=== PATIENT | male | born 1945 | race Caucasian/White ===

== ENCOUNTER → 2016-09-21 | Outpatient (CLI) | payer OTHER ==
[~2016-09-21] MED LIST: AMLH/550 PO; DILT-117 PO; ZOLP10TA PO
--- NOTE | 2016-09-21 16:58 | DIAGNOSTIC IMAGING REPORT ---
LEFT HIP UNILATERAL 2 VIEWS CLINICAL HISTORY: M25.552 Left hip [id number] pain COMPARISON: None. DISCUSSION: Severe degenerative change left hip. [id number] configuration superior acetabular margin. Several degenerative subchondral cysts as well as mild peripheral osteophytic reaction. No evidence for acetabular protrusion. There is no evidence for soft tissue swelling. IMPRESSION: Severe degenerative change left hip. The above report was generated using voice recognition software. It may contain grammatical, syntax or spelling errors. Electronically signed by: Warren Gayle M.D. 09/21/2016 4:57 PM Dictated Date/Time: 09/21/2016 4:56 PM
== END | disposition home or self-care (01) ==
LOC: C.RAD1850 16:47
PROVIDERS: ATTEND Internal Medicine
DX: M25.552 Pain in left hip (principal)

== ENCOUNTER → 2017-05-24 | Outpatient (CLI) | payer OTHER ==
--- NOTE | 2017-05-24 14:54 | DIAGNOSTIC IMAGING REPORT ---
CHEST 2 VIEWS ROUTINE CLINICAL HISTORY: COUGH COMPARISON STUDY: No previous studies for comparison. FINDINGS: The cardiac and mediastinal contours are normal. There is no evidence of focal pulmonary consolidation. There is no evidence of failure. No pleural effusions are visualized.[ An 8 mm rounded density towards the left lung base likely represents a nipple shadow. IMPRESSION: No active disease in the chest. Electronically signed by: Orestes Miramontes M.D. 05/24/2017 2:53 PM Dictated Date/Time: 05/24/2017 2:53 PM
== END | disposition home or self-care (01) ==
LOC: C.RAD1850 14:45
PROVIDERS: ATTEND Physician Assistant Medical
DX: R05 Cough (principal)

== ENCOUNTER → 2017-07-16 | Outpatient (CLI) | payer OTHER ==
[2017-07-16 10:10] LABS: BLOOD UREA NITROGEN 22 mg/dl (7-18); CALCIUM 8.9 mg/dl (8.5-10.1); CARBON DIOXIDE 33 mmol/L (21-32); CREATININE 0.96 mg/dl (0.60-1.40); GLUCOSE 94 mg/dl (70-99); POTASSIUM 3.2 mmol/L (3.5-5.1); SODIUM 138 mmol/L (136-145)
== END | disposition home or self-care (01) ==
LOC: C.LAB1850 07:13
PROVIDERS: ATTEND Internal Medicine
DX: I10 Essential (primary) hypertension (principal)

== ENCOUNTER 2019-10-24 05:19 | Observation (INO) ==
--- NOTE | 2019-09-19 16:27 | PAT Medication Instructions ---
Medication Instructions Date of Service September 19, 2019 Home Medications Medication Instructions Recorded sildenafil 50 mg tablet 50 mg PO DAILY PRN #10 tab 04/08/19 amiloride 5 mg-hydrochlorothiazide See Rx Instructions .ROUTE 05/05/19 50 mg tablet .COMPLEX #90 tablet diltiazem HCl 300 mg See Rx Instructions .ROUTE 05/05/19 capsule,extended release 24 hr .COMPLEX #90 capsule zolpidem 10 mg tablet 10 mg PO DAILY PRN #90 tab 08/07/19 fluocinonide 0.05 % topical cream 1 appln TOP BID PRN metronidazole 0.75 % topical cream 1 appln TOP BID PRN sildenafil 50 mg tablet 50 mg PO DAILY PRN amiloride 5 mg-hydrochlorothiazide 50 mg tablet diltiazem HCl 300 mg capsule,extended release 24 hr zolpidem 10 mg tablet 10 mg PO DAILY PRN STOP taking 24 hours before surgery fluocinonide 0.05 % topical cream 1 appln TOP BID PRN metronidazole 0.75 % topical cream 1 appln TOP BID PRN sildenafil 50 mg tablet 50 mg PO DAILY PRN DO NOT take the morning of surgery amiloride 5 mg-hydrochlorothiazide 50 mg tablet zolpidem 10 mg tablet 10 mg PO DAILY PRN Take morning of surgery With a small sip of water, OTHERWISE NOTHING TO EAT OR DRINK AFTER MIDNIGHT: diltiazem HCl 300 mg capsule,extended release 24 hr Take evening before surgery zolpidem 10 mg tablet 10 mg PO DAILY PRN (if needed) Other Notes If you have any questions please call us at [phone] or [phone] or [phone] or [phone]
--- NOTE | 2019-09-22 14:50 | Anesthesiology Consultation ---
Date of Service September 22, 2019 Assessment & Plan (1) Encounter for pre-operative examination: Chart Review Chart Review: Pending: Refer to Additional Notes / Consult section (pending response from PCP re: low K and preop Covid testing) and Patient seen in Pre Admission Testing Preop labs showed K 3.0- did write note to PCP to optimize- will await response. Per PAT appt 09/22/19, resides in [facility]. Wears mask in public. Educated patient to follow up with surgeon's office regarding Covid testing. Educated on importance of self quarantining, social distancing and wearing mask in public both for the patient and household contacts. Teaching & Discussion Pre-Anesthesia Teaching/Discussion Notes: Instructed NPO after midnight before surgery,except medications with 15 cc of water. Medication instructions provided according to the PAT guidelines. History Surgery Operation Date: 10/24/19 12:30 Proposed Procedures p Left Total Hip Replacement - Rm Wei MD Height/Weight Height: 5 ft 8 in Weight: 69 kg Allergies Allergy/AdvReac Type Severity Reaction Status Date / Time No Known Drug Allergies Allergy Verified 09/19/19 08:33 Medications Home Medications Medication Instructions Recorded Confirmed Last Taken fluocinonide 0.05 % topical cream 1 appln TOP BID PRN 01/07/19 09/19/19 Unknown metronidazole 0.75 % topical cream 1 appln TOP BID PRN 01/07/19 09/19/19 Unknown sildenafil 50 mg tablet 50 mg PO DAILY PRN #10 tab 04/08/19 09/19/19 Unknown amiloride 5 mg-hydrochlorothiazide See Rx Instructions .ROUTE 05/05/19 09/19/19 Unknown 50 mg tablet .COMPLEX #90 tablet diltiazem HCl 300 mg See Rx Instructions .ROUTE 05/05/19 09/19/19 Unknown capsule,extended release 24 hr .COMPLEX #90 capsule zolpidem 10 mg tablet 10 mg PO DAILY PRN #90 tab 08/07/19 09/19/19 Unknown 3-in-1 Commode #1 ea 09/22/19 09/22/19 Unknown Wheeled Walker #1 ea 09/22/19 09/22/19 Unknown Past Medical History Medical History (Updated 09/22/19 @ 15:03 by Deirdre Vega PA-C) Eczema Hearing loss Hx of heartburn No recent issues Hypertension Insomnia Neuropathy BLE Osteoarthritis Rosacea Exercise / Class Metabolic Activity II 4-5 Yardwork/Stairs/Walk up hill (one flight stairs - no chest pain or SOB) Past Family History Family History Other No family history of adverse response to anesthesia No family history of bleeding disorder Past Surgical History Surgical History History of colonoscopy History of esophagogastroduodenoscopy (EGD) History of shoulder surgery LEFT History of tonsillectomy Past Anesthesia History No Hx of Anesthesia Complications and No Family Hx of Anesthesia Complications History of PONV No Hx of PONV and No Hx of Motion Sickness Social History Smoking Status: Former smoker Do You Dip or Chew Tobacco: No Smoking End Date: IN COLLEGE YEARS Hx Alcohol Use: Yes Alcohol type: beer and wine alcohol intake frequency: a few times a week Hx Substance Use: No substance use type: does not use Review of Systems Patient denies chest pain, shortness of breath, dyspnea on exertion, cough, wheezing, palpitations. No hx of seizures, stroke, MO, apnea/snoring. No hx of blood clots or blood transfusions Physical Exam Vital Signs VITALS BP 136/76 P 67 TEMP 98.4 SP02 95% RESP 16 Constitutional no acute distress ENMT Mouth: no TMJ clicking Thyromental Distance: > or= 3.5 Finger Breadths (4.0) Mallampati Class: II Denies any loose or missing teeth Neck + limited neck extension (moderate ) Respiratory normal respiratory effort; no respiratory distress Auscultation: lungs clear to auscultation bilaterally; no wheezes Cardiovascular Rate/Rhythm: regular rate and regular rhythm Heart Sounds: no murmur Vessels: no carotid bruit Musculoskeletal Spine: no pain with cervical ROM Neurologic moves all extremities Psychiatric Orientation: alert Testing Laboratory Results 09/22/19 15:02 09/22/19 15: PT 10.4 Seconds (9.0-12.0) 09/22/19 15: INR 1.0 (0.9-1.1) 09/22/19 15: APTT 31.0 Seconds (21.0-31.0) 09/22/19 15:02 Blood Type O Positive 09/22/19 15:02 Antibody Screen NEGATIVE 09/22/19 15:02 Electrocardiogram Date: 09/22/19 Findings: + SB @ (59) Minimal voltage criteria for LVH, may be normal variant. Chest X-Ray Date: 09/22/19 Findings: + NAD The cardiomediastinal silhouette is unremarkable noting atherosclerotic calcification of the thoracic aorta. There is mild bibasilar scarring/atele ctasis. The lungs and pleural spaces are otherwise clear. There is no pneumothorax.
--- NOTE | 2019-09-22 15:38 | Electrocardiogram Report ---
Test Reason : Blood Pressure : / mmHG Vent. Rate : 059 BPM Atrial Rate : 059 BPM P-R Int : 172 ms QRS Dur : 102 ms QT Int : 414 ms P-R-T Axes : 036 -13 007 degrees QTc Int : 409 ms Sinus bradycardia Minimal voltage criteria for LVH, may be normal variant Borderline ECG When compared with ECG of 03-DEC-2014 20:51, QRS duration has increased Confirmed by Nathanael Denton ([id number]) on 09/22/2019 3:38:21 PM Referred By: Rm Wei Confirmed By:Nathanael Denton
[2019-09-22 16:00] LABS: Basophils # (auto) 0.05 K/uL (0-0.2); Basophils % (auto) 0.8 %; Eosinophils # (auto) 0.12 K/uL (0-0.5); Eosinophils % (auto) 1.8 %; Hematocrit (blood only) 44.8 % (42-52); Hemoglobin 15.5 g/dL (14.0-18.0); Immature Granulocytes # (auto) 0.03 K/uL (0.00-0.02); Immature Granulocytes % (auto) 0.5 %; Lymphocytes # (auto) 1.92 K/uL (1.2-3.4); Lymphocytes % (auto) 29.4 %; Mean Corpuscular Hemoglobin 32.6 pg (25-34); Mean Corpuscular Hgb Conc 34.6 g/dL (32-36); Mean Corpuscular Volume 94.1 fL (80-100); Mean Platelet Volume 11.9 fL (7.4-10.4); Monocytes # (auto) 0.55 K/uL (0.11-0.59); Monocytes % (auto) 8.4 %; Neutrophils # (auto) 3.85 K/uL (1.4-6.5); Neutrophils % (auto) 59.1 %; Platelet Count 232 K/uL (130-400); RDW Coefficient of Variation 13.2 % (11.5-14.5); RDW Standard Deviation 45.3 fL (36.4-46.3); Red Blood Count 4.76 M/uL (4.7-6.1); White Blood Count 6.52 K/uL (4.8-10.8)
--- NOTE | 2019-09-22 16:00 | XRay Report ---
TWO VIEW CHEST CLINICAL HISTORY: Preoperative examination. FINDINGS: PA and lateral chest radiographs are compared to study dated 05/24/2017. The cardiomediastin al silhouette is unremarkable noting atherosclerotic calcification of the thoracic aorta. There is mi ld bibasilar scarring/atelectasis. The lungs and pleural spaces are otherwise clear. There is no pneu mothorax. The skeletal structures are osteopenic. The skeletal structures are osteopenic. There is a healed right posterior rib fracture. IMPRESSION: No active disease in the chest. ACT 112: Negative or not required by law. Electronically signed by: Emile Palomino M.D. 09/22/2019 3:58 PM
[2019-09-22 16:05] LABS: BUN Creatinine Ratio 15.4 (10-20); Calcium 8.8 mg/dl (8.5-10.1); Est GFR (African American) 80.3; Est GFR (Non-African American) 69.3
[2019-09-22 16:10] LABS: Partial Thromboplastin Ratio 1.1; Prothrombin Time 10.4 Seconds (9.0-12.0)
--- NOTE | 2019-10-18 10:02 | History and Physical Report ---
DATE OF ADMISSION: 10/24/2019 CHIEF COMPLAINT: Left hip and leg pain. HISTORY OF PRESENT ILLNESS: The patient is a 74-year-old gentleman who presents for surgical treatment of his left hip. He has got a long history of left hip pain and discomfort that has gradually gotten worse over time. He has continued to try and stay active, but having more and more difficulty doing this due to his pain. He cannot exercise or walk any long distance due to the groin and thigh pain. He has got a lot of knee pain as well. He had an extensive workup which showed a fairly normal looking knee, but a severely arthritic hip. He would like to have this pain better. He has difficulty putting his shoes and socks on. Pain medicine does not really help. PAST MEDICAL HISTORY: Past medical history is significant for hypertension. PAST SURGICAL HISTORY: Previous surgeries include left AC joint separation. ALLERGIES: None. CURRENT MEDICINES: Include: 1. Amiloride/hydrochlorothiazide once a day. 2. Diltiazem. 3. Unspecified topical ointment. 4. Metronidazole topical ointment. 5. Sildenafil. 6. Zolpidem. SOCIAL HISTORY: A 74-year-old male. He lives in [place]. He does live by himself. No significant smoking history. Seven to ten drinks per week. FAMILY HISTORY: Noncontributory. REVIEW OF SYSTEMS: Negative for diabetes, neurologic problem, vascular problems or bleeding disorders. No chest pain or shortness of breath. No history of DVT or PE. No known bleeding problems. PHYSICAL EXAMINATION: GENERAL: Physical examination shows a pleasant, healthy appearing elderly male. Looks to be in excellent health. HEENT: Benign. NECK: Supple. No lymphadenopathy. LUNGS: Clear to auscultation. HEART: Has a regular rate and rhythm. ABDOMEN: Soft, nontender, nondistended. EXTREMITIES: Grossly neurovascularly intact except as follows. Examination of the left hip and leg reveals the patient walks with a slight bit of limp. He is about 0.25 cm short on the left compared to the right. He has got very stiff hip which recreates his pain. Negative straight leg raise. He cannot quite internally rotate his hip to neutral. No knee effusion. No instability in his knee. Normal knee motion. X-RAYS: X-rays of the left hip reveal advanced hip DJD. He has got complete loss of his joint space with cystic changes of the femoral head and acetabulum. He has got fairly similar, but less severe disease in his right hip. X-rays of the left knee are fairly normal. Joint space is well maintained. Minimal arthritic change. ASSESSMENT: A 74-year-old male with advanced bilateral hip pain and degenerative joint disease, left side more symptomatic than the right. Interestingly, he is having mostly knee and thigh pain and his knee exam and x-rays are normal. I am almost certain that most of this pain is coming from his hip. It is disabling. He would like to have his hip fixed. PLAN: We are going to take him to the Operating Room and do a left total hip replacement. The risks and benefits of this procedure were explained to the patient and include but not limited to DVT, PE, , infection, neurological injury, vascular injury, bleeding problem, pain, limited range of motion, stiffness, failure to relieve his symptoms, dislocation, need for blood transfusion, fracture, etc. The patient understands and desires to proceed. As far as discharge plans, he is hoping to be discharged to home. His sister is going to come and stay with him for a week. We will do the best we can to get his leg lengths reasonably equal, but he is going to probably need his right hip done in the future, so we will lengthen his leg slightly. The patient understands and will proceed as above. ALPHONSO
[2019-10-24] MEDS ORDERED: BUPIVACAINE 0.5 % 5 MG/1 ML PF 10ML VIAL ONE (05:41)
[2019-10-24] MEDS ORDERED: TRANEXAMIC ACID 1,000 MG **IV Pre-op IV SCH (06:00)
[2019-10-24] MEDS ORDERED: LR 500ML BOLUS, THEN 15ML/HR IV SCH (06:00)
[2019-10-24] MEDS ORDERED: ACETAMINOPHEN 500 MG TAB PO SCH (06:00)
[2019-10-24] MEDS ORDERED: CEFAZOLIN 2000MG 2,000 MG/15 ML SYR IV SCH (06:00)
[2019-10-24] MEDS ORDERED: FAMOTIDINE 20 MG TAB PO SCH (06:00)
[2019-10-24] MEDS ORDERED: METOCLOPRAMIDE HCL 10 MG TABLET PO SCH (06:00)
[2019-10-24] MEDS ORDERED: GABAPENTIN 300 MG CAP PO SCH (06:00)
[2019-10-24] MEDS ORDERED: LR 60ML/HR IV SCH (06:00)
[2019-10-24 06:20] LABS: BUN Creatinine Ratio 21.4 (10-20); Calcium 9.2 mg/dl (8.5-10.1); Creatinine Clr Calc Pharmacy 72.2 ml/min; Est GFR (African American) 98.8; Est GFR (Non-African American) 85.2; Potassium 3.1 mmol/L (3.5-5.1)
[2019-10-24] MEDS ORDERED: fentaNYL citrate 100 MCG/2 ML VIAL ONE (06:23)
[2019-10-24] MEDS ORDERED: MIDAZOLAM HCL 1 MG/ML 2ML VIAL ONE (06:23)
[2019-10-24] MEDS ORDERED: MoRPHine SULFATE PF 1 MG/ML 10 ML AMP/VIAL ONE (06:23)
[2019-10-24] MEDS ORDERED: EPINEPHrine INJ 1 MG/ML AMP ONE (06:30)
[2019-10-24] MEDS ORDERED: BUPIVACAINE 0.5 % 5 MG/1 ML MPF 30ML VIAL ONE (06:30)
[2019-10-24] MEDS ORDERED: BACITRACIN INJ 50,000 UNIT VIAL ONE (06:30)
--- NOTE | 2019-10-24 06:45 | History & Physical Bridge Note ---
Date of Service October 24, 2019 History & Physical Bridge Note I have examined the patient, reviewed the History & Physical and in the interval since the performance of the History & Physical I have noted the following changes of clinical significance: no changes noted
[2019-10-24] MEDS ORDERED: DiphenhydrAMINE HCL 50 MG/ML VIAL IV PRN (06:54)
[2019-10-24] MEDS ORDERED: NALOXONE HCL 0.4 MG/1 ML VIAL/CARP IV PRN ×2 (06:54→11:09)
[2019-10-24] MEDS ORDERED: ePHEDrine sulfate 50 MG/ML AMP IV PRN (06:54)
[2019-10-24] MEDS ORDERED: ONDANSETRON INJ 2 MG/ML 2 ML VIAL IV PRN ×2 (06:54→11:09)
[2019-10-24] MEDS ORDERED: LACTATED RINGER'S 500 ML IV PRN (06:54)
[2019-10-24] MEDS ORDERED: MoRPHine SULFATE PF 1 MG/ML 10 ML AMP/VIAL INT SPINAL ONE (06:54)
[2019-10-24] MEDS ORDERED: NALOXONE HCL 1 MG in SODIUM CHLORIDE 0.9% 1000ML 1,000 ML IV PRN (06:54)
[2019-10-24] MEDS ORDERED: NALOXONE HCL 0.08 MG in SYRINGE 1.8 ML IV PRN (06:54)
[2019-10-24] MEDS ORDERED: MEPERIDINE HCL 25 MG/ML CARP/VIAL IV PRN (06:54)
[2019-10-24] MEDS ORDERED: NO NARCOTICS OR SEDATIVES SCH (07:00)
[2019-10-24] MEDS ORDERED: SODIUM CHLORIDE 0.9% 1000ML 1,000 ML IV SCH (07:00)
[2019-10-24] MEDS ORDERED: DC INTRASPINAL MORPHINE SCH (07:00)
--- NOTE | 2019-10-24 08:11 | Post Operative Brief Note ---
PG Immediate Post Op with CF Date of Surgery October 24, 2019 Pre & Post Diagnosis Operation Date: 10/24/19 07:00 Pre-Op Diagnosis: Left Hip Advanced Degenerative Joint Disease Post-Op Diagnosis: Left Hip Advanced Degenerative Joint Disease I identified the patient and participated in the time-out.: Yes Procedure Operation Date: 10/24/19 07:00 Actual Procedures p Left Total Hip Arthroplasty--Uncemented(Left) - Rm Wei MD Surgeon Rm Wei MD Broke Beater Gege, PAC Estimated Blood Loss 200 Findings Consistent with Post-Op Diagnosis Fluids 1000 cc Specimens Specimen Description: A. Left Femoral Head Drains Cristobal Catheter Anesthesia Type Spinal MAC Complications none Disposition Accompanied Patient To Recovery: Yes Disposition: Recovery Room
--- NOTE | 2019-10-24 08:25 | Operative Report ---
Post Operative Report Pre & Post Diagnosis Operation Date: 10/24/19 07:00 Pre-Op Diagnosis: Left Hip Advanced Degenerative Joint Disease Post-Op Diagnosis: Left Hip Advanced Degenerative Joint Disease I identified the patient and participated in the time-out.: Yes Procedure Operation Date: 10/24/19 07:00 Actual Procedures p Left Total Hip Arthroplasty--Uncemented(Left) - Rm Wei MD Surgeon Rm eWi MD Pipe Insulator Gege, PAC Estimated Blood Loss 200 Findings Consistent with Post-Op Diagnosis Operative findings revealed advanced left hip DJD. He had grade 4 [id number] disease of the femoral head and acetabulum. He had a large medial acetabular osteophyte and a significant anterior acetabular osteophyte. Fluids 1000 cc. Specimens Left femoral head sent for pathology. Drains None. Complications none Disposition Accompanied Patient To Recovery: Yes Disposition: Recovery Room Indications Patient is 74-year-old gentleman is fairly active and independent who has a several year history of increasing and progressive leg pain and discomfort left side greater than right. He has been asked to insensate conservative treatment with extensive work-up and treated conservative without adequate relief. X-rays revealed minimal arthritic changes knee. He had advanced left hip DJD. He elected proceed with surgical treatment of his hip. Description of Procedure Operative implants consist of: 1. Biomet G7 size 54 mm acetabular shell. 2. 6.5 cancellus acetabular screws 1 of 35 mm length and 1 of 20 mm in length. 3. [place] hole eliminator. 4. Highly cross-linked polyethylene liner with a 54 mm outer diameter and 36 mm inner diameter. 5. Yefri Corail I size 11 KLA femoral stem. 6. +8.5/36 mm ceramic articular ball. The patient was taken to the operating identified placed on the operating table supine position protectors were properly padded. IV antibiotics arrived by anesthesia team. A spinal anesthetic had been implemented holding area. Cristobal catheter was placed in sterile fashion. The patient was then placed in the right lateral decubitus position. An axillary roll was placed. A Stulberg hip positioner was used for positioning. Left hip and leg were then prepped and draped in usual sterile fashion. A posterior lateral approach to the left hip was then performed through a curvilinear incision centered over the greater trochanter. Sharp dissection got through subcutaneous tissue down to level the IT band gluteal fascia the IT band gluteal fascia incised longitudinally in line with skin incision. The underlying greater truck bursa was excised. The piriformis and external rotators and posterior capsule were then released from the posterior aspect hip joint as a single layer. The hip was internally rotated and dislocated. A great care was taken throughout the procedure protect the sciatic nerve at all times. A femoral neck osteotomy cut was made with Final Cut about 6 mm above the lesser trochanter. Femoral head was removed and sent for pathology. The femur was retracted anteriorly. Attention drawn the acetabulum. The acetabular labrum was excised per the pulmonary fat was excised. I then remove some of the medial osteophyte in order to see the medial wall the acetabulum. I then reamed the acetabulum begin with a size 45 and progressing up to 53. I did enter the stem with a 54 reamer. A 54 mm Biomet G7 acetabular shell was then placed in about 20 degrees of anteversion and 40 degrees lateral opening. It was fixed with two 6.5 cancellus acetabular screws. An anterior osteophyte was removed. A trial liner was placed. Attention drawn the femur. The proximal femur was entered with a cookie-cutter followed by canal finder. I broached begin the size 8 and progressed up to 11. Got good fit at 11. It did not feel like I could predictably fit the 12 down. We had excellent stability. Calcar reamer was used smooth and off the calcar. I then trialed the hip. The +5 articular ball was stable but the soft tissue tension was fairly lax. With a +8.5 head soft tissue tension was more appropriate. Leg lengths seem pretty equal. I was fully aware that he is got advanced hip arthritis on his other side and likely need that replaced as well. Having said this we knew that we might lengthen him slightly as a result. The +8.5 neck lengths seem to re- create soft tissue better. We elect to place these implants. All trial implants were removed. An apex eliminator was placed but highly cross-linked polyethylene liner was placed. A a size 11 KLA femoral stem was impacted in position. +8.5/36 mm ceramic articular ball was placed. Hip was located once again found to be stable. Attention drawn toward closing. The wounds irrigated copious pulsatile lavage solution. I did inject locally with 60 cc of half percent Marcaine with epinephrine. The posterior capsule and external rotators were then repaired through drill holes in the posterior trochanter as a single layer with #2 Tycron suture. The IT band gluteal fascia then closed in 1 PDS suture running fashion. Subcutaneous tissue was then closed 2 layers the deep layer #1 Vicryl suture and subcutaneous tissues with 2- 0 Dexon suture in a buried interrupted fashion. Skin was then closed with skin greta. The leg was then cleaned and dried a sterile dressing composed Xeroform, 4 x 4's, ABD pad and foam tape was applied. The patient then transferred to the recovery room in stable condition. Patient tolerated the procedure well there are no complications. Dimas De Guzman, my physician account management assistant, was present for the entire procedure. His assistance was required for appropriate positioning, prepping and draping, surgical exposure, performing the technical details of the operation, placing the implants, closure of the wound, and placement of the sterile bandage. I attest to the content of the Intraoperative Record and any orders documented therein. Any exceptions are noted below.
--- NOTE | 2019-10-24 08:35 | XRay Report ---
XR hip 1V LT w pelvis HISTORY: 74 years-old Male IN PACU - A/P PELVIS and LATERAL HIP left hip total joint arthroplasty COMPARISON: Left hip radiographs 09/21/2016 TECHNIQUE: AP view of the pelvis with crosstable lateral view of the left hip FINDINGS: Left hip total joint arthroplasty. There is satisfactory alignment without acute fracture or retained foreign body. Lateral skin greta are noted along with expected postsurgical soft tissue swelling a nd deep tissue air. Moderate to severe right hip osteoarthritis. IMPRESSION: Left hip total joint arthroplasty with expected postoperative findings. ACT 112: Negative or not required by law. The above report was generated using voice recognition software. It may contain grammatical, syntax o r spelling errors. Electronically signed by: Arjun Wells M.D. 10/24/2019 8:34 AM
--- NOTE | 2019-10-24 09:16 | Anesthesiology Progress Note ---
Date of Service October 24, 2019 Anesthesia Post Procedure Vital Signs Vital Signs: Temp Pulse Pulse Resp BP Pulse Ox 10/24/19 09:00 54 L 14 98/58 L 96 10/24/19 08:50 60 14 95/56 L 99 10/24/19 08:40 60 9 L 113/62 100 10/24/19 08:30 54 L 10 L 115/62 100 10/24/19 08:20 65 14 113/60 98 10/24/19 08:11 97.9 F 59 L 14 108/61 98 10/24/19 05:38 97.7 F 58 L 16 163/94 H 95 Transfer of Care Handoff Completed per policy Notes Mental Status: alert / awake / arousable and participated in evaluation Patient Amnestic to Procedure: Yes Nausea / Vomiting: adequately controlled Pain: adequately controlled Airway Patency, RR, SpO2: stable & adequate BP & HR: stable & adequate Hydration State: stable & adequate Neuraxial Anesthesia: was administered and sensory block is resolving Anesthetic Complications: no major complications apparent and Pt Satisfied with anesthetic care
[2019-10-24] MEDS ORDERED: TAMSULOSIN HCL 0.4 MG CAP PO PRN (11:09)
[2019-10-24] MEDS ORDERED: TRAMADOL HCL 50 MG TABLET PO PRN (11:09)
[2019-10-24] MEDS ORDERED: HYDROmorphone INJ 0.5 MG/0.5 ML SYR IV PRN (11:09)
[2019-10-24] MEDS ORDERED: NON-FORMULARY MEDICATION (Sildenafil 50 MG) PO PRN (11:09)
[2019-10-24] MEDS ORDERED: FLUOCINONIDE 0.05% CR 15 GM TUBE EXT PRN (11:09)
[2019-10-24] MEDS ORDERED: ZOLPIDEM TARTRATE 10 MG TAB PO PRN (11:09)
[2019-10-24] MEDS ORDERED: bisacodyL 10 MG SUPP PR PRN (11:09)
[2019-10-24] MEDS ORDERED: AMILORIDE/HCTZ 5/50MG TAB PO SCH (11:09)
[2019-10-24] MEDS ORDERED: MAGNESIUM HYDROXIDE SUSP 30 ML UDC PO PRN (11:09)
[2019-10-24] MEDS ORDERED: metroNIDAZOLE 0.75% TOPICAL GEL 45 GM TUBE TOP PRN (11:09)
[2019-10-24] MEDS ORDERED: METOCLOPRAMIDE HCL INJ 5 MG/ML 2 ML VIAL IV PRN (11:09)
[2019-10-24] MEDS ORDERED: ALUMINUM/MAGNESIUM SUSP 30 ML UDC PO PRN (11:09)
[2019-10-24] MEDS: KETOROLAC TROMETHAMINE 15 MG/ML VIAL IV SCH ×2 (13:09→18:04)
[2019-10-24] MEDS: DOCUSATE SODIUM 100 MG CAP PO SCH ×2 (13:09→21:44)
[2019-10-24] MEDS: ASPIRIN 81 MG ECTAB PO SCH ×2 (13:09→21:42)
[2019-10-24] MEDS: MULTIVITAMIN TAB PO SCH (13:10)
[2019-10-24] MEDS: dilTIAZem HCL 300 MG CAPCR PO SCH (13:12)
[2019-10-24] MEDS: CEFAZOLIN 1000MG 1,000 MG/7.5 ML SYR IV SCH ×2 (13:52→21:42)
[2019-10-24] MEDS: ACETAMINOPHEN 500 MG TAB PO SCH ×2 (13:53→21:45)
[2019-10-24] MEDS ORDERED: TRANEXAMIC ACID / 0.7% NACL 1,000 MG/100 ML BAG IV SCH (14:00)
[2019-10-24] MEDS: AMILORIDE HCL 5 MG TAB PO SCH (14:33)
[2019-10-24] MEDS: hydroCHLOROthiazide 25 MG TAB PO SCH (14:33)
[2019-10-24] MEDS: SODIUM CHLORIDE 0.9% 1000ML 1,000 ML IV SCH ×2 (17:37→21:46)
[2019-10-24] MEDS: ASCORBIC ACID 500 MG TAB PO SCH (18:03)
[2019-10-24] MEDS: FERROUS GLUCONATE 324 MG TAB PO SCH (18:04)
[2019-10-24] MEDS: SENNA 8.6 MG TAB PO SCH (21:44)
[2019-10-25] MEDS: KETOROLAC TROMETHAMINE 15 MG/ML VIAL IV SCH ×5 (00:20→23:37)
[2019-10-25] MEDS ORDERED: ONDANSETRON INJ 2 MG/ML 2 ML VIAL IV PRN (00:54)
[2019-10-25] MEDS ORDERED: ZOLPIDEM TARTRATE 10 MG TAB PO PRN (00:54)
[2019-10-25] MEDS ORDERED: TRAMADOL HCL 50 MG TABLET PO PRN (00:54)
[2019-10-25] MEDS ORDERED: HYDROmorphone INJ 0.5 MG/0.5 ML SYR IV PRN (00:54)
[2019-10-25] MEDS: ACETAMINOPHEN 500 MG TAB PO SCH ×3 (06:10→21:27)
[2019-10-25] MEDS: ASCORBIC ACID 500 MG TAB PO SCH ×2 (08:06→18:20)
[2019-10-25] MEDS: hydroCHLOROthiazide 25 MG TAB PO SCH (08:06)
[2019-10-25] MEDS: AMILORIDE HCL 5 MG TAB PO SCH (08:07)
[2019-10-25] MEDS: dilTIAZem HCL 300 MG CAPCR PO SCH (08:07)
[2019-10-25] MEDS: ASPIRIN 81 MG ECTAB PO SCH ×2 (08:11→20:46)
[2019-10-25] MEDS: MULTIVITAMIN TAB PO SCH (08:11)
[2019-10-25] MEDS: FERROUS GLUCONATE 324 MG TAB PO SCH ×2 (08:11→18:20)
[2019-10-25] MEDS: DOCUSATE SODIUM 100 MG CAP PO SCH ×2 (08:11→20:46)
--- NOTE | 2019-10-25 09:24 | Progress Notes ---
DATE: 10/25/2019 SUBJECTIVE: A 74-year-old gentleman postop day 1 from a left hip replacement. He is doing well. Not having any pain at all while lying in bed. No chest pain or shortness of breath. Not feeling dizzy or lightheaded. OBJECTIVE: VITAL SIGNS: Temperature 36.6. Vital signs stable. GENERAL: Physical examination shows a pleasant elderly male. He is lying in bed, looks completely comfortable. He is awake, alert and oriented. EXTREMITIES: Examination of left hip and leg reveals leg lengths to be equal. Dressing is clean, dry and intact. Thigh is soft and supple. He is neurologically intact. LABORATORY DATA: Pending. ASSESSMENT: A 74-year-old gentleman postop day 1 from a left hip replacement, doing well. Pain is controlled. Hip is located. He is neurologically intact. PLAN: 1. DVT prophylaxis include thigh-high TEDs, SCDs and aspirin twice a day for the next 6 weeks. 2. PT/OT. Weightbear as tolerated. Left total hip protocol. 3. Pain control. Doing well with current pain regimen. 4. Disposition: He is planning to be discharged to home with some home health and his sister is going to assist in his care. Likely discharge tomorrow if medically stable and pain controlled.
[2019-10-25 09:59] LABS: Basophils # (auto) 0.02 K/uL (0-0.2); Basophils % (auto) 0.2 %; Eosinophils # (auto) 0.18 K/uL (0-0.5); Hematocrit (blood only) 40.4 % (42-52); Immature Granulocytes # (auto) 0.02 K/uL (0.00-0.02); Immature Granulocytes % (auto) 0.2 %; Lymphocytes # (auto) 1.39 K/uL (1.2-3.4); Lymphocytes % (auto) 15.4 %; Mean Corpuscular Hemoglobin 34.1 pg (25-34); Mean Corpuscular Hgb Conc 34.7 g/dL (32-36); Mean Corpuscular Volume 98.3 fL (80-100); Mean Platelet Volume 11.6 fL (7.4-10.4); Monocytes # (auto) 0.61 K/uL (0.11-0.59); Monocytes % (auto) 6.8 %; Neutrophils # (auto) 6.79 K/uL (1.4-6.5); Neutrophils % (auto) 75.4 %; Platelet Count 189 K/uL (130-400); RDW Coefficient of Variation 12.9 % (11.5-14.5); RDW Standard Deviation 46.5 fL (36.4-46.3); Red Blood Count 4.11 M/uL (4.7-6.1); White Blood Count 9.01 K/uL (4.8-10.8)
[2019-10-25 10:32] LABS: BUN Creatinine Ratio 14.6 (10-20); Calcium 8.7 mg/dl (8.5-10.1); Creatinine Clr Calc Pharmacy 70.6 ml/min; Est GFR (African American) 97.9; Est GFR (Non-African American) 84.4; Potassium 2.6 mmol/L (3.5-5.1)
[2019-10-25] MEDS ORDERED: POTASSIUM CHLORIDE 20 MEQ TABCR PO ONE ×3 (11:00→20:00)
[2019-10-25] MEDS: SENNA 8.6 MG TAB PO SCH (20:46)
[2019-10-26] MEDS: KETOROLAC TROMETHAMINE 15 MG/ML VIAL IV SCH (06:25)
[2019-10-26] MEDS: ACETAMINOPHEN 500 MG TAB PO SCH (06:25)
[2019-10-26] MEDS: DOCUSATE SODIUM 100 MG CAP PO SCH (07:52)
[2019-10-26] MEDS: ASPIRIN 81 MG ECTAB PO SCH (07:52)
[2019-10-26] MEDS: MULTIVITAMIN TAB PO SCH (07:53)
[2019-10-26] MEDS: FERROUS GLUCONATE 324 MG TAB PO SCH (07:53)
[2019-10-26] MEDS: ASCORBIC ACID 500 MG TAB PO SCH (07:54)
[2019-10-26] MEDS: dilTIAZem HCL 300 MG CAPCR PO SCH (07:56)
[2019-10-26] MEDS: AMILORIDE HCL 5 MG TAB PO SCH (07:56)
--- NOTE | 2019-10-26 08:46 | Progress Notes ---
DATE: 10/26/2019 SUBJECTIVE: A 74-year-old gentleman postop day 2 from left hip replacement. Hip is doing well. He has had some calf discomfort in both legs overnight, which is not unusual for him. His hip pain has been very manageable. No chest pain or shortness of breath. Had some orthostasis yesterday but better than last evening. OBJECTIVE: VITAL SIGNS: Temperature 36.5. Vital signs stable. GENERAL: Shows a pleasant elderly male. He is lying in bed, looks pretty comfortable. EXTREMITIES: Examination of left hip and leg reveals leg lengths to be equal. Dressing is clean, dry and intact. Thigh is soft and supple. His calves are both supple as well. There is no significant swelling. No palpable masses or cords. ASSESSMENT: A 74-year-old gentleman postop day 2 from a left hip replacement, doing pretty well. Pain is controlled. He is having some calf pain similar to what he normally has preoperatively. There are no signs of thrombosis. PLAN: 1. DVT prophylaxis including thigh-high TEDs, SCDs, and aspirin twice a day. 2. PT/OT. Weight bear as tolerated. Left total hip protocol. 3. Pain control, doing okay with current pain regimen. 4. Disposition: Plan to discharge to home with some home health and his sister's assistance later today if he is doing okay.
[2019-10-26 08:51] LABS: BUN Creatinine Ratio 21.8 (10-20); Calcium 8.6 mg/dl (8.5-10.1); Creatinine Clr Calc Pharmacy 93.5 ml/min; Est GFR (African American) 109.8; Est GFR (Non-African American) 94.7; Potassium 3.6 mmol/L (3.5-5.1)
== END 2019-10-26 13:35 | disposition home health service (06) ==
LOC: ASU 05:19 → 3E 05:19

== ENCOUNTER 2021-09-29 06:48 | Observation (INO) ==
--- NOTE | 2021-09-07 15:53 | PAT Medication Instructions ---
Medication Instructions Date of Service September 07, 2021 Home Medications diltiazem HCl 300 mg capsule,24 hr,extended release 300 mg PO QAM triamterene 37.5 mg-hydrochlorothiazide 25 mg tablet 1 tab PO QAM DO NOT take the morning of surgery triamterene 37.5 mg-hydrochlorothiazide 25 mg tablet 1 tab PO QAM Take morning of surgery With a small sip of water, OTHERWISE NOTHING TO EAT OR DRINK AFTER MIDNIGHT: diltiazem HCl 300 mg capsule,24 hr,extended release 300 mg PO QAM Other Notes If you have any questions please call us at [phone] or [phone] or [phone] or [phone]
--- NOTE | 2021-09-12 10:37 | Anesthesiology Consultation ---
Date of Service September 12, 2021 Assessment & Plan (1) Encounter for pre-operative examination: - hx post-op orthostasis with 10/24/19 L SILVIANO requiring additional overnight stay per pt and Dr. Wei's progress note. SAB L3-L4 1 attempt. - COVID screening: Per assessment on 09/12/2021: Travel screen returned from [facility] 09/02, no known COVID-19 positive contacts or current COVID-19 related symptoms in past 2 weeks. Pt vaccinated. Surgeon arranging preop COVID testing, scheduled 09/27/2021. Awaiting results. Chart Review Chart Review: Acceptable Risk for Surgery and Patient seen in Pre Admission Testing Teaching & Discussion Pre-Anesthesia Teaching/Discussion Notes: Instructed NPO after midnight before surgery, except medications with 15 cc of water. Medication instructions provided according to the PAT guidelines. History Surgery Operation Date: 09/29/21 07:00 Proposed Procedures p Right Total Hip Replacement - Rm Wei MD Height/Weight Height: 5 ft 8 in Weight: 67 kg Allergies Allergy/AdvReac Type Severity Reaction Status Date / Time No Known Drug Allergies Allergy Verified 09/06/21 07:37 Medications Home Medications Medication Instructions Recorded Confirmed Last Taken diltiazem HCl 300 mg capsule,24 300 mg PO QAM 09/06/21 09/06/21 Unknown hr,extended release triamterene 37.5 1 tab PO QAM 09/06/21 09/06/21 Unknown mg-hydrochlorothiazide 25 mg tablet Wheeled Walker #1 ea 09/12/21 09/12/21 Unknown Past Medical History Medical History Eczema Hearing loss Hypertension Neuropathy Rosacea Vertigo Patient denies h/o stroke, seizures, heart attack, heart failure, DM, blood clots or blood transfusions. Exercise / Class Metabolic Activity II 4-5 Yardwork/Stairs/Walk up hill (denies CP or SOB with 1 FOS) Past Family History Family History Sister Breast cancer Family/Other Breast cancer Prostate cancer Grandfather (Paternal) Stroke Other No family history of adverse response to anesthesia No family history of bleeding disorder Denies family history of Ovarian cancer Myocardial infarction Colorectal cancer Past Surgical History Surgical History History of colonoscopy History of esophagogastroduodenoscopy (EGD) History of left hip replacement (~10/2019) History of shoulder surgery History of tonsillectomy Past Anesthesia History No Family Hx of Anesthesia Complications and Other (hypotension post-op SILVIANO) History of PONV No Hx of PONV and No Hx of Motion Sickness Social History Smoking Status: Never smoker Do You Dip or Chew Tobacco: No Hx Alcohol Use: Yes Alcohol type: beer and wine alcohol intake frequency: 0-2 drinks per day Hx Substance Use: No substance use type: does not use Review of Systems Patient denies chest pain, shortness of breath, dyspnea on exertion, snoring, witnessed apneas, reflux, fever, chills, cough, wheezing, or palpitations. Physical Exam Vital Signs Vitals BP 148/80 P 64 TEMP 98 SP02 99% on RA RESP 17 Physical Full cervical extension range of motion without pain TMD 3.5 finger breaths Mallampati Score 3 Dentition: intact, denies chipped or loose teeth, caps/crowns, implants or bridges Lungs: normal respiratory effort. Clear throughout to auscultation, no adventitious breath sounds Cardiac: regular rate and rhythm, no murmurs noted Carotid arteries: negative bruit bilat Lab Results Anesthesia Preop Results Results Anesthesia Widget: WBC 7.45 K/ul (4.8-10.8) 09/12/21 Hgb 15.0 g/dl (14.0-18.0) 09/12/21 Hct 43.7 % (40.1-51.0) 09/12/21 Plt 205 K/uL (130-400) 09/12/21 Na 138 mmol/L (136-145) 09/12/21 K 3.8 mmol/L (3.5-5.1) 09/12/21 Cl 101 mmol/L (98-107) 09/12/21 CO2 30 mmol/L (21-32) 09/12/21 BUN 19 mg/dl (6-23) 09/12/21 Creat 0.83 mg/dl (0.6-1.4) 09/12/21 Glucose Level 70 mg/dl (70-99(Fasting)) 09/12/21 PT 10.3 Seconds (9.0-12.0) 09/12/21 PTT 29.6 Seconds (21.0-31.0) 09/12/21 INR 1.0 (0.9-1.1) 09/12/21 TSH 1.248 uIu/ml (0.300-4.500) 07/20/21 Free T4 0.75 ng/dl (0.61-1.60) 07/20/21 Blood Type O Positive 09/12/21 Antibody Screen NEGATIVE 09/12/21 Testing Electrocardiogram Date: 09/12/21 Sinus bradycardia, rate 59 bpm Chest X-Ray Date: 09/12/21 There is a mildly tortuous thoracic aorta, unchanged. The heart is normal in size. No pleural effusions. No pneumothorax. The lungs are clear. Old postoperative/posttraumatic changes noted at the left acromioclavicular joint and distal left clavicle. Old, healed right-sided rib fractures. IMPRESSION: No significant change compared to the prior study. No acute process.
[~2021-09-29 06:48] MED LIST changes: +ACETAMINOPHEN 500 MG TAB PO SCH; -AMLH/550 PO; +BUPIVACAINE 0.5 % 5 MG/1 ML PF 10ML VIAL ONE; +CeleBREX 200 MG CAP PO SCH; -DILT-117 PO; +FAMOTIDINE 20 MG TAB PO SCH; +LR 500ML BOLUS, THEN 15ML/HR IV SCH; +LR 60ML/HR IV SCH; +TRANEXAMIC ACID 1,000 MG **IV Pre-op IV SCH; -ZOLP10TA PO; +ceFAZolin 2000MG 2,000 MG/15 ML SYR IV SCH
--- NOTE | 2021-09-29 06:54 | History & Physical Bridge Note ---
Date of Service September 29, 2021 History & Physical Bridge Note I have examined the patient, reviewed the History & Physical and in the interval since the performance of the History & Physical I have noted the following changes of clinical significance: no changes noted
[2021-09-29] MEDS ORDERED: KETOROLAC 30 MG/ML VIAL IV PRN (08:31)
[2021-09-29] MEDS ORDERED: ONDANSETRON INJ 2 MG/ML 2 ML VIAL IV PRN ×2 (08:31→13:00)
[2021-09-29] MEDS ORDERED: ePHEDrine sulfate 50 MG/ML AMP IV PRN (08:31)
[2021-09-29] MEDS ORDERED: ATROPINE SULFATE 0.1 MG/ML 10ML SYR IV PRN (08:31)
[2021-09-29] MEDS ORDERED: fentaNYL citrate 100 MCG/2 ML VIAL ONE (08:32)
[2021-09-29] MEDS ORDERED: MIDAZOLAM HCL 1 MG/ML 2ML VIAL ONE (08:32)
[2021-09-29] MEDS ORDERED: PROPOFOL IV EMULSION 10 MG/ML 20 ML VIAL IV ONE (08:34)
[2021-09-29] MEDS ORDERED: ONDANSETRON INJ 2 MG/ML 2 ML VIAL ONE (08:34)
[2021-09-29] MEDS ORDERED: EPINEPHrine INJ 1 MG/ML AMP ONE (09:04)
[2021-09-29] MEDS ORDERED: BUPIVACAINE 0.5 % 5 MG/1 ML MPF 30ML VIAL ONE (09:05)
[2021-09-29] MEDS ORDERED: ePHEDrine sulfate 50 MG/ML SYR ONE (10:34)
[2021-09-29] MEDS ORDERED: PHENYLEPHRINE HCL 10 MG/ML VIAL ONE (10:34)
--- NOTE | 2021-09-29 10:56 | Operative Report ---
PG Post Operative Report Pre & Post Diagnosis Operation Date: 09/29/21 08:50 Pre-Op Diagnosis: Right Hip Osteoarthritis Post-Op Diagnosis: Right Hip Osteoarthritis I identified the patient and participated in the time-out.: Yes Procedure Operation Date: 09/29/21 08:50 Actual Procedures p Right Total Hip Arthroplasty, Uncemented(Right) - Rm Wei MD Surgeon Rm Wei MD Shop Mechanic Dimas De Guzman PA-C Estimated Blood Loss 200 Findings Consistent with Post-Op Diagnosis Operative findings were advanced right hip DJD. Extensive grade 4 [id number] disease of the femoral head and acetabulum. There is inflammatory appearance of the hip joint and the cartilage itself. He had pretty significant medial osteophyte. He had osteophytes off the anterior and posterior inferior wall of the acetabulum. Fluids 1300 cc Specimens Right femoral head sent for pathology Anesthesia Type Spinal MAC Complications none Disposition Accompanied Patient To Recovery: Yes Indications Patient 76-year-old gentleman and fairly independent and lives by himself is had a long history of hip problems. He underwent left hip replacement 2 years ago and is done well from this. He became more limited by the right hip pain. He has known arthritis that progressed over the past 2 years. Failed conservative measures and elected proceed with right total hip arthroplasty. Description of Procedure Operative implants consist of: 1 Biomet G7 size 52 mm acetabular shell. 2. 6.5 cancellous acetabular screws 1 of 35 mm in length and 1 of 25 mm length. 3. [place] hole die casting machine maintainer. 4. Highly cross-linked polyethylene liner with a 52 mm outer diam and 36 mm diameter. 5. DePuy Karaya size 12 KLA femoral stem. 6. Is a +5/36 mm ceramic articular ball. The patient was taken to the operating room, identified, placed on the operating table supine position protectors were properly padded. IV antibiotics tried by anesthesia team. A spinal anesthetic and been implemented holding area. A Cristobal catheter was placed in sterile fashion. Patient then placed in the left lateral cubitus position. An axillary roll was placed. A Stulberg hip positioner was used for positioning. The right hip and leg were then prepped and draped in usual sterile fashion. A posterior lateral approach of the right hip was then performed through a curvilinear incision centered over the greater trochanter. Sharp dissection was carried through subcutaneous tissue down to the IT band gluteal fascia the IT band gluteal fascia/longitudinally in line with skin incision. The underlying greater bursa was excised. The piriformis and external rotators were tagged and taken off the posterior aspect hip joint capsule. Great care was taken throughout the procedure protect the sciatic nerve at all times. Posterior capsulotomy was then performed leaving a large flap for later repair. It was internally rotated and dislocated. A femoral neck osteotomy cut was made with a Final Cut about 6 to 7 mm above the lesser trochanter. Femoral head was removed and sent for pathology. The femur was retracted anteriorly. Attention drawn the acetabulum. The acetabular labrum was excised. Medial osteophyte was removed. The pulmonary fat was excised. Sequential reaming the acetabulum was then performed beginning with size 45 and progressing up to 51 reamer. I then reamed a little bit with a 52 and placed a 52 mm Biomet G7 acetabular shell in about 40 degrees lateral opening and 20 degrees of anteversion. It was fixed with two 6.5 cancellous acetabular screws. Some fairly significant anterior and inferior osteophytes were removed. Trial liner was placed. Attention drawn the femur. The proximal femur was entered with a [employer] cutter followed by canal finder. I then broached beginning size 8 and progressing up to 12. Got excellent fit of the 12. Calcar reamer was used smooth and off the calcar. Then trialed the hip and the +5 articular ball provide full stability and equal leg lengths and appropriate soft tissue tension. We elect to place these implants. All trial implants were removed. An apex asphalt raker was placed. Highly cross- linked polyethylene liner was placed. A DePuy size 12 KLA femoral stem was impacted in position. A +5/36 mm ceramic articular ball was placed. Hip was located once again found to be stable. Attention drawn toward closing. The wound was irrigated with copious amounts of pulsatile lavage solution. I did inject locally with 60 cc of half percent Marcaine with epinephrine. The posterior capsule and external rotators then repaired through drill holes in the posterior trochanter with #2 Tycron suture. The IT band gluteal fascia then closed with 2 layers the deep layer #1 Vicryl suture and subcutaneous tissues with 2-0 Dexon suture in a buried interrupted fashion skin was closed with skin greta. Leg was then cleaned and dried and sterile dressing was Xeroform, 4 x 4's, sterile ABD pads, foam tape was applied. The patient then transferred to the recovery room in stable condition. Patient tolerated procedure well no complications. Dimas De Guzman, my physician dyer assistant, was present for the entire procedure. His assistance was essential and required for appropriate patient positioning, prepping and draping, surgical exposure, performing the technical details of the operation, placement the implants, closure of the wound, and placement of the sterile bandage. I attest to the content of the Intraoperative Record and any orders documented therein. Any exceptions are noted below.
--- NOTE | 2021-09-29 12:02 | XRay Report ---
AP PELVIS, CROSSTABLE LATERAL RIGHT HIP History: Right total hip arthroplasty. Degenerative arthritis. Postop. FINDINGS: The patient is status post a right total hip arthroplasty. The hardware is intact. No fract ure or dislocation. Skin greta are in place. Evidence for prior left total hip arthroplasty. IMPRESSION: Right total hip arthroplasty. No evidence for hardware complication ACT 112: Negative or not required by law. Electronically signed by: Corey Bennett M.D. 09/29/2021 12:01 PM
--- NOTE | 2021-09-29 12:13 | Anesthesiology Progress Note ---
Date of Service September 29, 2021 Anesthesia Post Procedure Vital Signs Vital Signs: Temp Pulse Pulse Resp BP BP Pulse Ox 09/29/21 12:10 51 L 12 126/83 98 09/29/21 11:50 51 L 10 L 127/70 96 09/29/21 11:35 36.0 C L 55 L 14 124/71 95 09/29/21 11:25 59 L 14 126/69 96 09/29/21 11:15 67 14 138/71 96 09/29/21 11:05 58 L 12 125/70 100 09/29/21 10:55 56 L 12 126/67 100 09/29/21 10:46 36.3 C L 61 12 123/83 97 09/29/21 07:19 36.7 C 65 18 144/85 H 97 O2 Del Method O2 Flow Rate 09/29/21 12:10 Room Air 09/29/21 11:50 Room Air 09/29/21 11:35 Room Air 09/29/21 11:25 Room Air 09/29/21 11:15 Room Air 09/29/21 11:05 Oxymask 5 09/29/21 10:55 Oxymask 5 09/29/21 10:46 Oxymask 5 09/29/21 07:19 Room Air Pain Intensity Right Hip: Pain Intensity: 4 Transfer of Care Handoff Completed per policy Notes Mental Status: alert / awake / arousable Patient Amnestic to Procedure: Yes Nausea / Vomiting: adequately controlled Pain: adequately controlled Airway Patency, RR, SpO2: stable & adequate BP & HR: stable & adequate Hydration State: stable & adequate Neuraxial Anesthesia: was administered and sensory block is resolving Anesthetic Complications: no major complications apparent
[2021-09-29] MEDS ORDERED: HYDROmorphone INJ 0.5 MG/0.5 ML SYR IV PRN (13:00)
[2021-09-29] MEDS ORDERED: traMADol HCL 50 MG TABLET PO PRN (13:00)
[2021-09-29] MEDS ORDERED: NALOXONE HCL 0.4 MG/1 ML VIAL/CARP IV PRN (13:00)
[2021-09-29] MEDS ORDERED: MAGNESIUM HYDROXIDE SUSP 30 ML UDC PO PRN (13:00)
[2021-09-29] MEDS ORDERED: bisacodyL 10 MG SUPP PR PRN (13:00)
[2021-09-29] MEDS ORDERED: METOCLOPRAMIDE HCL INJ 5 MG/ML 2 ML VIAL IV PRN (13:00)
[2021-09-29] MEDS ORDERED: ALUMINUM/MAGNESIUM SUSP 30 ML UDC PO PRN (13:00)
[2021-09-29] MEDS: HYDROmorphone INJ 1 MG/ML SYRINGE IV PRN ×4 (14:03→15:24)
[2021-09-29] MEDS: KETOROLAC TROMETHAMINE 15 MG/ML VIAL IV SCH ×2 (15:12→19:02)
[2021-09-29] MEDS: ACETAMINOPHEN 500 MG TAB PO SCH ×2 (15:14→20:34)
[2021-09-29] MEDS: SODIUM CHLORIDE 0.9% 1000ML 1,000 ML IV SCH (15:44)
[2021-09-29] MEDS ORDERED: TRANEXAMIC ACID / 0.7% NACL 1,000 MG/100 ML BAG IV SCH (17:00)
[2021-09-29] MEDS: ASCORBIC ACID 500 MG TAB PO SCH (18:33)
[2021-09-29] MEDS: ASPIRIN 81 MG ECTAB PO SCH (20:34)
[2021-09-29] MEDS: DOCUSATE SODIUM 100 MG CAP PO SCH (20:34)
[2021-09-29] MEDS: ceFAZolin 1000MG 1,000 MG/7.5 ML SYR IV SCH (20:40)
[2021-09-29] MEDS ORDERED: SENNA 8.6 MG TAB PO SCH (21:00)
[2021-09-30] MEDS: SODIUM CHLORIDE 0.9% 1000ML 1,000 ML IV SCH (00:58)
[2021-09-30] MEDS: ceFAZolin 1000MG 1,000 MG/7.5 ML SYR IV SCH (01:14)
[2021-09-30] MEDS: KETOROLAC TROMETHAMINE 15 MG/ML VIAL IV SCH ×3 (01:15→12:09)
[2021-09-30] MEDS: ACETAMINOPHEN 500 MG TAB PO SCH ×2 (06:08→12:55)
[2021-09-30] MEDS ORDERED: dexAMETHasone 10 MG in SYRINGE 0 ML IV SCH (08:00)
[2021-09-30] MEDS: ASCORBIC ACID 500 MG TAB PO SCH (08:05)
[2021-09-30] MEDS: ASPIRIN 81 MG ECTAB PO SCH (08:05)
[2021-09-30] MEDS: DOCUSATE SODIUM 100 MG CAP PO SCH (08:06)
--- NOTE | 2021-09-30 08:37 | Progress Notes ---
DATE OF SERVICE: 09/30/2021. SUBJECTIVE: A 76-year-old gentleman postoperative day 1 from a right hip replacement. He is doing p retty well. Not a lot of pain. He was nauseated overnight. No chest pain or shortness of breath. Not feeling dizzy or lightheaded. OBJECTIVE: VITAL SIGNS: Temperature 36.7. Vital signs are stable. PHYSICAL EXAMINATION: GENERAL: Shows a pleasant middle-aged male. He is lying in bed, looks pretty comfortable currently. LUNGS: Clear to auscultation. HEART: Regular rate and rhythm. ABDOMEN: Soft, nontender, nondistended. EXTREMITIES: Grossly neurovascularly intact except as follows: Examination of the ____ leg reveals the dressing to be clean, dry and intact. Thigh is soft and supple. Leg lengths are equal. Hip is located. He is neurologically intact. LABORATORY DATA: Labs are pending. ASSESSMENT: A 76-year-old gentleman postoperative day 1 from a right hip replacement, doing well. H e has been a bit nauseated, but seems a bit better this morning. His pain is controlled. Hip is loc ated. He is neurologically intact. PLAN: 1. DVT prophylaxis includes thigh-high TEDs, SCDs, and aspirin twice a day. 2. PT, OT, weightbear as tolerated. Right total hip protocol. 3. Pain control, doing okay with current pain regimen. 4. Disposition: He is planning to be discharged to home. He is going to go stay with a friend/neig hbor. We will have home health set up. We will see how he does in therapy and how the nausea comes along today. Job ID: [id number]
[2021-09-30] MEDS ORDERED: MULTIVITAMIN TAB PO SCH (09:00)
[2021-09-30] MEDS ORDERED: TRIAMTERENE/HCTZ 37.5/25MG TAB PO SCH (09:00)
[2021-09-30] MEDS ORDERED: TAMSULOSIN HCL 0.4 MG CAP PO SCH (09:00)
[2021-09-30] MEDS ORDERED: DOCUSATE SODIUM/SENNA 50/8.6MG TAB PO SCH (09:00)
[2021-09-30] MEDS ORDERED: dilTIAZem HCL 300 MG CAPCR PO SCH (09:00)
[2021-09-30 09:13] LABS: Basophils # (auto) 0.04 K/uL (0-0.2); Basophils % (auto) 0.4 %; Eosinophils # (auto) 0.08 K/uL (0-0.50); Eosinophils % (auto) 0.9 %; Hematocrit (blood only) 33.9 % (40.1-51.0); Hemoglobin 11.4 g/dl (14.0-18.0); Immature Granulocytes # (auto) 0.03 K/uL (0.00-0.02); Immature Granulocytes % (auto) 0.3 %; Lymphocytes # (auto) 0.85 K/uL (1.2-3.4); Lymphocytes % (auto) 9.3 %; Mean Corpuscular Hemoglobin 32.7 pg (25.0-34.0); Mean Corpuscular Hgb Conc 33.6 g/dL (32.0-36.0); Mean Corpuscular Volume 97.1 fL (80.0-100.0); Mean Platelet Volume 11.8 fL (9.4-12.4); Monocytes # (auto) 0.84 K/uL (0.24-0.82); Monocytes % (auto) 9.2 %; Neutrophils # (auto) 7.27 K/uL (1.4-6.5); Neutrophils % (auto) 79.9 %; Platelet Count 154 K/uL (130-400); RDW Coefficient of Variation 13.2 % (11.5-14.5); RDW Standard Deviation 46.9 fL (36.4-46.3); Red Blood Count 3.49 M/uL (4.63-6.08); White Blood Count 9.11 K/ul (4.8-10.8)
[2021-09-30 09:30] LABS: BUN Creatinine Ratio 22.1 (10-20); Calcium 7.8 mg/dl (8.5-10.1); Creatinine Clr Calc Pharmacy 77.7 ml/min; Est GFR (African American) 102.9 ml/min; Est GFR (Non-African American) 88.8 ml/min; Potassium 3.4 mmol/L (3.5-5.1)
== END 2021-09-30 16:00 | disposition home health service (06) ==
LOC: PACUINP 06:48 → ASU 06:48 → 3W 17:46
DX: M16.11 Unilateral primary osteoarthritis, right hip; Z96.642 Presence of left artificial hip joint